=== PATIENT | female | born 1955 | race Caucasian/White ===

== ENCOUNTER → 2018-01-31 | Day surgery (SDC) | payer OTHER ==
[2018-01-26 15:35] VITALS: Ht 152.4 cm; Wt 111.4 kg
[~2018-01-31] VITALS: Ht 152.4 cm; Wt 111.4 kg
[~2018-01-31] MED LIST: ATOR-24 PO; GLIP-199 PO; LEVO150T9 PO; LIDOCAINE HCL 2% 2 ML VIAL (20MG/ML) ONE; LISI20TA3 PO; METF-841 PO; METO25TA3 PO; PROPOFOL IV EMULSION 10 MG/ML 20 ML VIAL IV ONE; SERT-234 PO; SODIUM CHLORIDE 0.9% 500ML 500 ML IV ONE
--- NOTE | 2018-01-31 09:16 | Endo History and Physical ---
History & Physical Date of Service: Jan 31, 2018. Chief Complaint: HX OF POLYPS Referring Physician: DR. SALAS History of Present Illness h.o polyps Past Surgical History Hx Cardiac Surgery: No Hx Internal Defibrillator: No Hx Pacemaker: No Hx Abdominal Surgery: No Hx of Implantable Prosthesis: No Hx Post-Op Nausea and Vomiting: No Hx Cancer Surgery: No Hx Thoracic Surgery: No Hx Orthopedic: No Hx Urinary Tract Surgery: No Social History Smoking Status: Never Smoker Hx Substance Use: No Hx Alcohol Use: Yes (RARELY) Allergies Coded Allergies: Codeine (Verified Allergy, Severe, ANAPHYLAXIS, 01/31/18) Penicillins (Verified Allergy, Unknown, HIVES, 01/31/18) Current Medications Reported Home Medications Medications Dose Route/Sig Max Daily Dose Days Date Category Prinivil (Lisinopril) 20 Mg Tab 20 Mg PO QAM 01/26/18 Reported Levothyroxine Sodium 150 Mcg Tab 1 Tab PO DAILY 30 01/26/18 Reported Metformin HCl ER (Metformin HCl) 1,000 Mg Tab 1 Tab PO BID 01/26/18 Reported Glipizide Er (Glipizide) 10 Mg Tab 1 Tab PO BID 90 01/26/18 Reported Lipitor (Atorvastatin Calcium) 40 Mg Tab 1 Tab PO HS 90 01/26/18 Reported Toprol-Xl (Metoprolol Succinate) 25 Mg Tabcr 12.5 Mg PO DAILY 06/30/10 Reported Zoloft (Sertraline HCl) 100 Mg Tab 100 Mg PO DAILY 06/30/10 Reported Vital Signs Weight (Kilograms): 111.36 Height (Feet): 5 Height (Inches): 0 Date Time Temp Pulse Resp B/P (MAP) Pulse Ox O2 Delivery O2 Flow Rate FiO2 01/31/18 08:30 36.6 74 16 132/90 (104) 97 Room Air Physical Exam General Appearance: no apparent distress Respiratory/Chest: Auscultation: breath sounds normal Abdomen: Inspection & Palpation: soft Assessment and Plan h.o polyps - cscopy
[2018-01-31 10:25] VITALS: BP 113/61; PULSE 61; O2SAT 96
--- NOTE | 2018-01-31 10:30 | GI REPORT ---
Procedure Date: 01/31/2018 9:27 AM Procedure: Colonoscopy Indications: High risk colon cancer surveillance: Personal history of colonic polyps Medicines: See the Anesthesia note for documentation of the administered medications Complications: No immediate complications. Estimated Blood Loss: Estimated blood loss: none. Procedure: Pre-Anesthesia Assessment: - ASA Grade Assessment: III - A patient with severe systemic disease. After I obtained informed consent, the scope was passed under direct vision. Throughout the procedure, the patient's blood pressure, pulse, and oxygen saturations were monitored continuously. The scope was introduced through the anus and advanced to the terminal ileum. The colonoscopy was performed without difficulty. The patient tolerated the procedure well. The quality of the bowel preparation was good. Findings: The perianal and digital rectal examinations were normal. Multiple small and large-mouthed diverticula were found in the sigmoid colon and descending colon. Small lipoma at hepatic flexure. A 6 mm polyp was found in the descending colon. The polyp was sessile. The polyp was removed with a cold snare. Resection and retrieval were complete. A 3 mm polyp was found in the sigmoid colon. The polyp was sessile. The polyp was removed with a cold biopsy forceps. Resection and retrieval were complete. Internal hemorrhoids were found during retroflexion. The hemorrhoids were mild. Impression: - Diverticulosis in the sigmoid colon and in the descending colon. - One 6 mm polyp in the descending colon, removed with a cold snare. Resected and retrieved. - One 3 mm polyp in the sigmoid colon, removed with a cold biopsy forceps. Resected and retrieved. - Internal hemorrhoids. Recommendation: - Repeat colonoscopy in 5 years for surveillance. Edgar Yadav M.D. Edgar Yadav MD 01/31/2018 10:30:05 AM This report has been signed electronically. Note Initiated On: 01/31/2018 9:27 AM I attest to the content of the Intraoperative Record and orders documented therein, exceptions below
--- NOTE | 2018-01-31 10:31 | Discharge Instructions ---
Endoscopy Patient Instructions Date / Procedure(s) Performed Jan 31, 2018. Colonoscopy Allergy Information Coded Allergies: Codeine (Verified Allergy, Severe, ANAPHYLAXIS, 01/31/18) Penicillins (Verified Allergy, Unknown, HIVES, 01/31/18) Discharge Date / Findings Jan 31, 2018. Diverticulosis, hemorrhoids, two polyps Provider Instructions Activity Restrictions - No exercising or heavy lifting for 24 hours. - Do not drink alcohol the day of the procedure. - Do not drive a car or operate machinery until the day after the procedure. - Do not make any important decisions or sign important papers in 24 hours after the procedure. Following Day: - Return to full activity which may include returning to work/school. Diet Start your diet with liquids and light foods (jello, soup, juice, toast). Then eat your usual diet if not nauseated. Treatment For Common After Affects For mild abdominal pain, bloating, or excessive gas: - Rest - Eat lightly - Lie on right side Follow-Up Information Follow-up with DR. SALAS as scheduled Anesthesia Information What You Should Know You have had a procedure that required some medicine to reduce anxiety and discomfort. This treatment is called moderate sedation. After receiving the treatment, you may be sleepy, but you will be able to breathe on your own. The effects of the treatment may last for several hours. Follow these instructions along with Activity/Diet recommendations noted above: * Do NOT do anything where dizziness or clumsiness would be dangerous. * Rest quietly at home today, then you can be up and about tomorrow. * Have a responsible person stay with you the rest of today. * You may have had an I.V. today. If so, you may take the dressing off later today. Recommendations Call your doctor if: * Trouble breathing * Continuous vomiting for more than 24 hours * Temperature above 101 degrees * Severe abdominal pain or bloating * Pain not relieved by pain medicine ordered * There is increased drainage or redness from any incision * A large amount of rectal bleeding greater than 2-3 tablespoons. (If you had a polyp/s removed or have hemorrhoids, a small amount of blood - from the rectum is to be expected.) * You have any unanswered questions or concerns. IN THE EVENT OF A SERIOUS EMERGENCY, GO TO THE NEAREST EMERGENCY ROOM Your discharge instructions were prepared by provider Edgar Snider. Patient Instructions Signature Page Aurelia Mike Patient (or Guardian) Signature/Date: I have read and understand the instructions given to me by my caregivers. Caregiver/RN/Doctor Signature/Date: The above-named patient and/or guardian has received patient instructions on this date. + Original Patient Signature Page (only) stays with chart. Please make copy for patient.
--- NOTE | 2018-01-31 10:31 | Anesthesiology Progress Note ---
Anesthesia Post Op Note Date & Time Jan 31, 2018 at 10:30 Vital Signs Pain Intensity: 0 Vital Signs Past 12 Hours Date Time Temp Pulse Resp B/P (MAP) Pulse Ox O2 Delivery O2 Flow Rate FiO2 01/31/18 10:25 61 20 113/61 (78) 96 Room Air 01/31/18 10:10 66 20 106/79 (88) 96 Room Air 01/31/18 09:55 66 16 111/56 (74) 96 Room Air 01/31/18 08:30 36.6 74 16 132/90 (104) 97 Room Air Notes Mental Status: alert / awake / arousable, participated in evaluation Pt Amnestic to Procedure: Yes Nausea / Vomiting: adequately controlled Pain: adequately controlled Airway Patency, RR, SpO2: stable & adequate BP & HR: stable & adequate Hydration State: stable & adequate Anesthetic Complications: no major complications apparent
== END | disposition home or self-care (01) ==
LOC: C.GI 07:59
PROVIDERS: ATTEND Internal Medicine Gastroenterology
DX: Z12.11 Encounter for screening for malignant neoplasm of colon (principal); Z86.010 Personal history of colon polyps; K57.30 Diverticulosis of large intestine without perforation or abscess without bleeding; D17.5 Benign lipomatous neoplasm of intra-abdominal organs; K63.5 Polyp of colon; D12.5 Benign neoplasm of sigmoid colon; K64.8 Other hemorrhoids; F32.9 Major depressive disorder, single episode, unspecified; E66.9 Obesity, unspecified; Z88.5 Allergy status to narcotic agent; Z88.0 Allergy status to penicillin; Z79.84 Long term (current) use of oral hypoglycemic drugs; Z79.899 Other long term (current) drug therapy